=== PATIENT | male | born 1990 ===

== ENCOUNTER 2017-04-04 18:15 | Emergency (ER) | payer OTHER ==
[2017-04-04 18:22] VITALS: TEMP 98.9
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
[2017-04-04 18:50] LABS: BASO % 0.3 % (0.0-2.0); EOS # 0.1 K/uL (0.0-0.7); EOS % 1.1 % (0.0-4.0); HEMOGLOBIN 16.2 g/dL (12.0-18.0); LYMPH % 29.1 % (20.0-40.0); MEAN CELL VOLUME 87.3 fl (80.0-94.0); MEAN CORPUSCULAR HEMOGLOBIN 28.9 pg (27.0-31.0); MEAN CORPUSCULAR HGB CONC 33.1 g/dL (33.0-37.0); MEAN PLATELET VOLUME 9.1 fl (7.2-11.7); MONO # 0.9 K/uL (0.0-0.8); MONO % 9.2 % (0.0-10.0); NEUT # 6.2 K/uL (1.8-7.0); NEUT % 60.3 % (50.0-75.0); NRBC % 0.1 % (0.0-0.0); RBC 5.59 Mil/uL (4.40-5.90); RED CELL DISTRIBUTION WIDTH 13.2 % (11.5-14.5); WHITE BLOOD COUNT 10.2 K/uL (4.8-10.8)
[2017-04-04 18:56] VITALS: BP 140/86; PULSE 83; RESP 16
[2017-04-04 19:11] LABS: BLOOD UREA NITROGEN 12 mg/dl (9-20); CALCIUM 10.1 mg/dL (8.4-10.2); GFR AFRICAN-AMERICAN > 60; GFR NON-AFRICAN AMERICAN > 60
[2017-04-04 19:20] LABS: BARBITURATES, UR NEGATIVE (NEGATIVE); BENZODIAZEPINES, UR NEGATIVE (NEGATIVE); OPIATES, UR NEGATIVE (NEGATIVE); PHENCYCLIDINE, UR NEGATIVE (NEGATIVE)
[2017-04-04 21:13] VITALS: O2SAT 98
== END 2017-04-04 21:05 | disposition home or self-care (01) ==
LOC: H.ER 18:15
DX: F43.20 Adjustment disorder, unspecified (principal)

== ENCOUNTER 2017-12-29 20:47 | Emergency (ER) | payer BC, OTHER ==
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
--- NOTE | 2017-12-30 00:03 | ED PDOC ---
- Laboratory Results Result Diagrams: 12/30/17 00:38 12/30/17 00:38 - ECG O2 Sat by Pulse Oximetry: 97 (RA) Pulse Ox Interpretation: Normal Medical Decision Making Medical Decision Makin:00 Patient endorsed to me by Dr. Guerrero pending blood work and [facility] evaluation. 03:00 Patient resting comfortably, no acute issues. 05:00 Patient resting comfortably, no acute issues. 07:[address] Meléndez pending evaluation by [facility]. Patient is medically cleared. UTI treated with macrobid. Scribe Attestation: Documented by Jose F Garvin, acting as a scribe for Marbin Scott MD. Scribe Attestation: All medical record entries made by the Scribe were at my direction and personally dictated by me. I have reviewed the chart and agree that the record accurately reflects my personal performance of the history, physical exam, medical decision making, and the department course for this patient. I have also personally directed, reviewed, and agree with the discharge instructions and disposition. Disposition - Clinical Impression Clinical Impression: Psychosis - POA Present On Arrival: None - Disposition Disposition: Transfer of Care Disposition Time: 07:00 Condition: FAIR Forms: [employer] (Czech) Patient Signed Over To: Bony Meléndez Handoff Comments: pending eval by [facility]
[2017-12-30 00:49] LABS: BASO # 0.1 K/uL (0.0-0.2); EOS % 0.3 % (0.0-4.0); HEMOGLOBIN 14.6 g/dL (12.0-18.0); LYMPH # 2.1 K/uL (1.0-4.3); LYMPH % 15.4 % (20.0-40.0); MEAN CORPUSCULAR HEMOGLOBIN 28.7 pg (27.0-31.0); MEAN CORPUSCULAR HGB CONC 33.7 g/dL (33.0-37.0); MEAN PLATELET VOLUME 8.8 fl (7.2-11.7); MONO # 1.1 K/uL (0.0-0.8); MONO % 8.2 % (0.0-10.0); NEUT # 10.3 K/uL (1.8-7.0); NEUT % 75.1 % (50.0-75.0); RBC 5.1 Mil/uL (4.40-5.90); RED CELL DISTRIBUTION WIDTH 13.2 % (11.5-14.5); WHITE BLOOD COUNT 13.6 K/uL (4.8-10.8)
[2017-12-30 01:01] LABS: BLOOD UREA NITROGEN 16 mg/dl (9-20); CALCIUM 9.9 mg/dL (8.4-10.2); GFR AFRICAN-AMERICAN > 60; GFR NON-AFRICAN AMERICAN > 60
[2017-12-30 04:33] LABS: SQUAMOUS EPITHIAL < 1 /hpf (0-5); URINE BILIRUBIN NEGATIVE (NEGATIVE); URINE BLOOD NEGATIVE (NEGATIVE); URINE CLARITY CLOUDY (Clear); URINE COLOR YELLOW (YELLOW); URINE GLUCOSE (UA) NEG (Normal); URINE LEUKOCYTE ESTERASE TRACE Leu/uL (Negative); URINE PROTEIN 30 mg/dL (NEGATIVE); URINE UROBILINOGEN 0.2-1.0 mg/dL (0.2-1.0)
[2017-12-30 05:21] LABS: BARBITURATES, UR NEGATIVE (NEGATIVE); BENZODIAZEPINES, UR NEGATIVE (NEGATIVE); OPIATES, UR NEGATIVE (NEGATIVE); PHENCYCLIDINE, UR NEGATIVE (NEGATIVE)
--- NOTE | 2017-12-30 07:00 | ED PDOC ---
- Laboratory Results Result Diagrams: 12/30/17 00:38 12/30/17 00:38 - ECG O2 Sat by Pulse Oximetry: 97 (RA) Pulse Ox Interpretation: Normal Medical Decision Making Medical Decision Making: Patient signed out to me by Dr. Scott @ 07:00, pending evaluation by [facility]. Scribe Attestation: Documented by Francis Tavera, acting as a scribe for Bnoy Meléndez MD Provider Scribe Attestation: All medical record entries made by the Scribe were at my direction and personally dictated by me. I have reviewed the chart and agree that the record accurately reflects my personal performance of the history, physical exam, medical decision making, and the department course for this patient. I have also personally directed, reviewed, and agree with the discharge instructions and disposition. Disposition - Clinical Impression Clinical Impression: Adjustment disorder - POA Present On Arrival: None - Disposition Referrals: [facility] [Outside] Disposition: Routine/Home Disposition Time: 12:38 Condition: FAIR Instructions: Adjustment Disorder Forms: [email or web address] (Nepali)
--- NOTE | 2017-12-30 08:00 | RAD ---
HISTORY: crisis COMPARISON: No prior. FINDINGS: LUNGS: No active pulmonary disease. PLEURA: No significant pleural effusion identified, no pneumothorax apparent. CARDIOVASCULAR: No radiographic findings to suggest acute or significant cardiovascular disease. OSSEOUS STRUCTURES: No significant abnormalities. VISUALIZED UPPER ABDOMEN: Normal. OTHER FINDINGS: None. IMPRESSION: No active disease.
[2017-12-30 09:41] VITALS: PULSE 76
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
[2017-12-30 13:12] VITALS: BP 128/76; RESP 18; TEMP 98; O2SAT 99
--- NOTE | 2017-12-31 12:27 | CARD ---
APPROVED REPORT EKG Measurement Heart [id number] <Conclusion> Normal sinus rhythm Possible Left atrial enlargement Borderline ECG
== END 2017-12-30 13:00 | disposition home or self-care (01) ==
LOC: H.ER 20:47
DX: F29 Unspecified psychosis not due to a substance or known physiological condition (principal); F43.20 Adjustment disorder, unspecified
CPT/HCPCS: 71045; 80048; 81003; 85025; 93005; 96372; 99284; G0480; J1630; J2060